=== PATIENT | female | born 1990 | race Hispanic/Latino ===

== ENCOUNTER 2017-06-02 15:15 | Outpatient (CLI) | payer OTHER ==
--- NOTE | 2017-06-02 17:59 | MRI ---
BRAIN MRI WITHOUT CONTRAST 06/02/17 HISTORY: Occipital headache for two weeks, blurred vision in the right eye. TECHNIQUE: Multiplanar and multisequence MR imaging of the brain is provided without contrast. FINDINGS: There is a cavum septum pellucidum incidentally noted. There is no evidence for acute infarction. Axi al gradient echo imaging demonstrates no evidence for intracranial hemorrhage. No midline shift, mass effect or ventricular enlargement. Regional bone marrow signal intensity appears within normal limits. There is a round structure of central T2 hyperintensity and peripheral T2 hypointensity along the cou rse of the transverse sinus on the left suggesting an arachnoid granulation. Arterial flow voids at a xial level of skull base appear grossly unremarkable on the T2 weighted imaging. Imaged paranasal sin uses/mastoid air cells appear grossly unremarkable. IMPRESSION: Unremarkable noncontrast enhanced brain MRI. POS: WILI
== END 2017-06-02 15:16 | disposition home or self-care (01) ==
LOC: MRI 15:15
PROVIDERS: ATTEND Family Medicine
DX: R51 Headache (principal); H53.8 Other visual disturbances
CPT/HCPCS: 70551

== ENCOUNTER 2018-01-18 09:05 | Outpatient (CLI) | payer OTHER | END 2018-01-18 09:06 | disposition home or self-care (01) | LOC: CTENTCT 09:05 | PROVIDERS: ATTEND Otolaryngology Plastic Surgery within the Head & Neck | DX: J32.9 Chronic sinusitis, unspecified (principal) | CPT/HCPCS: 70486 ==

== ENCOUNTER 2018-01-19 12:51 | Outpatient (CLI) | payer OTHER ==
[2018-01-19 13:53] LABS: BHCG - Serum Negative (NEGATIVE); Pregs Control Background? CLEAR/WHITE (CLR/WHITE); Pregs Control Bar Appear? YES (CONTROL BAR)
== END 2018-01-19 12:52 | disposition home or self-care (01) ==
LOC: LABBT 12:51
PROVIDERS: ATTEND Specialist
DX: Z01.812 Encounter for preprocedural laboratory examination (principal); J34.3 Hypertrophy of nasal turbinates; J32.4 Chronic pansinusitis
CPT/HCPCS: 84703; 85014

== ENCOUNTER 2018-01-21 08:47 | Day surgery (SDC) | payer OTHER ==
[2018-01-19 13:10] VITALS: BMI 29.5
[2018-01-21] MEDS ORDERED: Oxymetazoline HCl 0.05% ( 15 ML ) ONE ×2 (09:37→11:39)
[2018-01-21] MEDS ORDERED: Lidocaine 1% w/Epinephrine 1:100K 30 ML VIAL ONE (11:39)
[2018-01-21] MEDS ORDERED: Midazolam HCl 2 mg/2 ml Vial ONE ×2 (11:43→12:41)
[2018-01-21] MEDS ORDERED: Fentanyl 100 MCG/2 ML VIAL ONE ×3 (11:43→14:11)
[2018-01-21] MEDS ORDERED: Lidocaine 4% Topical Sol 50 ML BOT ONE (11:43)
[2018-01-21] MEDS ORDERED: Lidocaine 1% PF 5 ML VIAL ONE (11:55)
[2018-01-21] MEDS ORDERED: PROPOFOL 200 MG/20 ML VIAL ONE (11:55)
[2018-01-21] MEDS ORDERED: Glycopyrrolate 0.2 MG/ML 5 ML SYRINGE ONE (11:55)
[2018-01-21] MEDS ORDERED: Ondansetron HCl/PF 4 MG/2 ML Vial ONE (11:55)
[2018-01-21] MEDS ORDERED: Dexamethasone 20 MG/5 ML VIAL ONE (11:55)
--- NOTE | 2018-01-21 14:37 | OP ---
PREOPERATIVE DIAGNOSES: Chronic sinusitis, chronic headache, hypertrophic inferior turbinates. POSTOPERATIVE DIAGNOSES: Chronic sinusitis, chronic headache, hypertrophic inferior turbinates. PROCEDURES PERFORMED: 1. Bilateral nasal endoscopy with maxillary antrostomy. 2. Bilateral nasal endoscopy with maxillary antrostomy with removal of tissue. 3. Bilateral nasal endoscopy with total ethmoidectomy. 4. Bilateral nasal endoscopy with frontal sinusotomy. 5. Bilateral nasal endoscopy with submucosal resection of inferior turbinates. 6. Bilateral nasal endoscopy with sphenoidotomy. PROCEDURE IN DETAIL: After consent was obtained, the patient was identified, brought to the operatin g room, and placed on the operating room table in the supine position. Consent was obtained, notifyi ng the patient of the possibility of additional infections, bleeding, brain injury, and eye/orbital i njury. The patient was placed on the operating room table, and general endotracheal anesthesia and intravenous access was obtained. The patient was then positioned, prepped and draped for endoscopic sinus surgery. Nasal preparation included trimming nasal vestibular hairs and spraying in topical Af rin. We then placed Afrin topical solution on nasal pledgets and strategically located them intranas ally. The perinasal mucosa was injected with 1% lidocaine with 1:100,000 epinephrine in the submucop erichondrial plane of the septum, lateral nasal wall, and anterior to the uncinate. The patient was then prepped and draped in a sterile fashion and positioned for endoscopic sinus surgery. (Endoscopic Sinus Surgery) With the 0-degree endoscope, the patient underwent systematic nasal endoscopy. There were no suspici ous internasal masses or lesions identified. We then focused our attention to the osteomeatal comple x region under the middle turbinate. (Danny Bullosa) The danny bullosa was identified and entered with a sickle blade. The lateral aspect of the danny bullosa was meticulously resected while leaving the medial most aspect to form the new middle turbina te. Attention was made not to violate the mucosa. The straight biting punches and micro-debrider we re used to remove shrouds of mucosa and bony debris. (Maxillary Antrostomy) The uncinate was then identified and the extent of the uncinate was appreciated by out-fracturing the uncinate with the ball-tip probe. We then used the sickle blade to disarticulate the uncinate from the lateral nasal wall. This was then removed with straight biting and upbiting punches with the rem aining shrouds of mucosa and bony septum removed with the micro-debrider. The natural os of the maxi llary sinus was then identified and enlarged with the maxillary punches and back biting forceps. (Total Ethmoidectomy) The anterior face of the ethmoid bulla was entered and with the micro-debrider, dissection continued posteriorly to the ground lamella. The limits of dissection included the insertion of the middle tur binate, medial orbital wall, and base of skull. We similarly identified the frontal recess and remov ed shrouds of bone and debris in that region to obtain patency into the agger nasi region and frontal recess. We then entered the ground lamella and its anteroinferior aspect and proceeded posteriorly, opening the posterior ethmoid air-cell system. Again, the limits of dissection included the base of skull and medial orbital wall. (Sphenoidotomy) The anterior face of the sphenoid was identified and entered in its extreme anteroinferior aspect. A sphenoid punch was then used to enlarge the sphenoidotomy and no injury to the optic nerve or paid internship al carotid artery occurred. (Outfracture of the Inferior Turbinates) The inferior turbinates were visualized under endoscopic visualization and outfractured with the elev ator. The inferolateral edge of the inferior turbinate was then cauterized along its length with the suction cautery without difficulty. (Outfracture & Cautery of the Inferior Turbinates) The inferior turbinates were visualized with a 0-degree endoscope and outfractured with a [place] eleva tor. The inferior medial aspect was cauterized with the electrocautery. Hemostasis was obtained. A fter adequate airway was established, we turned our attention to the contralateral side and used a si milar procedure. Again, a [place] elevator was used to outfracture inferior turbinates under endoscopi c visualization. With a suction cautery, the free inferior medial aspect was cauterized under direct visualization along the length of the inferior turbinate. (Septoplasty) After local anesthesia was infiltrated into the submucoperichondrial plane, a standard Travis incisi on was made with a #15 blade down to the level of the septal cartilage. The caudal elevator was used to elevate the mucoperichondrium from the underlying cartilage. We then proceeded beyond the bony c artilaginous junction and elevated the bony periosteum as well. Great attention was paid to the spur to prevent rent formation in the septal flap. A transcartilaginous incision was then made, while pre serving an adequate dorsal and caudal cartilaginous strut for tip support. The deformed cartilage wa s removed and disarticulated from the bony cartilaginous junction and maxillary crest. This was plac ed in saline and would later be crushed and returned to the mucoperichondrial envelope. We then elev ated the contralateral periosteum from the bony cartilaginous region and removed the deformed portion s of the bone and bony spurs. The cartilage was then crushed and placed back into the mucoperichondr ial envelope and the mucosa was re-approximated with a quilting stitch composed of rapidly absorbent gut suture. The Travis incision was also closed with interrupted gut suture. At the completion of the case, [place] splints were placed and suture secured to the caudal septum. At this point, we then turned our attention to the contralateral side and proceeded with endoscopic s inus surgery. At the completion of the case, [place] keel splints were placed in the ethmoid cavities after the ethmoi dectomy. There were no complications. The patient tolerated the procedure well and was discharged t o the recovery room in stable condition prior to return to the preoperative Day Stay with [facility]. Prescriptions for pain medication and antibiotics were provided. The patient received intramuscular Depo-Medrol during the case. FINDINGS: Pansinusitis was encountered with inflammatory mucosal changes throughout.
[2018-01-21] MEDS ORDERED: Promethazine HCl 25 MG/ML VIAL ONE (14:44)
[2018-01-21] MEDS ORDERED: HYDROcodone/Acetaminophen 5/325 mg Tablet ONE (16:55)
== END 2018-01-21 17:00 | disposition home or self-care (01) ==
LOC: SDC 08:47
PROVIDERS: ATTEND Specialist
PROC: 09TV8ZZ Resection of Left Ethmoid Sinus, Via Natural or Artificial Opening Endoscopic (ICD-10-PCS; principal; 2018-01-21)
PROC: 099R8ZZ Drainage of Left Maxillary Sinus, Via Natural or Artificial Opening Endoscopic (ICD-10-PCS; principal; 2018-01-21)
PROC: 09BS8ZZ Excision of Right Frontal Sinus, Via Natural or Artificial Opening Endoscopic (ICD-10-PCS; principal; 2018-01-21)
PROC: 095L8ZZ Destruction of Nasal Turbinate, Via Natural or Artificial Opening Endoscopic (ICD-10-PCS; principal; 2018-01-21)
PROC: 09CW8ZZ Extirpation of Matter from Right Sphenoid Sinus, Via Natural or Artificial Opening Endoscopic (ICD-10-PCS; principal; 2018-01-21)
PROC: 09SM0ZZ Reposition Nasal Septum, Open Approach (ICD-10-PCS; principal; 2018-01-21)
PROC: 09CX8ZZ Extirpation of Matter from Left Sphenoid Sinus, Via Natural or Artificial Opening Endoscopic (ICD-10-PCS; principal; 2018-01-21)
PROC: 09TU8ZZ Resection of Right Ethmoid Sinus, Via Natural or Artificial Opening Endoscopic (ICD-10-PCS; principal; 2018-01-21)
PROC: 09TL8ZZ Resection of Nasal Turbinate, Via Natural or Artificial Opening Endoscopic (ICD-10-PCS; principal; 2018-01-21)
PROC: 099Q8ZZ Drainage of Right Maxillary Sinus, Via Natural or Artificial Opening Endoscopic (ICD-10-PCS; principal; 2018-01-21)
PROC: 09BT8ZZ Excision of Left Frontal Sinus, Via Natural or Artificial Opening Endoscopic (ICD-10-PCS; principal; 2018-01-21)
DX: J32.4 Chronic pansinusitis (principal); J34.3 Hypertrophy of nasal turbinates; E66.9 Obesity, unspecified; D64.9 Anemia, unspecified; J35.1 Hypertrophy of tonsils; J35.8 Other chronic diseases of tonsils and adenoids; Z79.2 Long term (current) use of antibiotics; Z68.29 Body mass index [BMI] 29.0-29.9, adult
CPT/HCPCS: 96374; J0131; J1100; J2001; J2250; J2405; J2550; J2704; J3010

== ENCOUNTER 2019-05-28 12:40 | Emergency (ER) | payer OTHER ==
[2019-05-28] MEDS ORDERED: Acetaminophen 500 MG TAB ONE (13:11)
[2019-05-28] MEDS ORDERED: Bacitracin 1 PK ONE (13:14)
== END 2019-05-28 13:35 | disposition home or self-care (01) ==
LOC: ERS 12:40
DX: S61.202A Unspecified open wound of right middle finger without damage to nail, initial encounter (principal); W45.8XXA Other foreign body or object entering through skin, initial encounter
CPT/HCPCS: 99283

== ENCOUNTER 2021-07-28 16:55 | Emergency (ER) | payer BC, OTHER ==
[~2021-07-28 16:55] MED LIST: Iopamidol-370 76% 500 ML 1 ML ONE
[2021-07-28 17:45] LABS: Bacteria/HPF None Seen HPF (None Seen); Bilirubin Negative (Negative); Blood, Urine 2+ (Negative); Clarity Clear (Clear); Glucose, Urine (Dipstick) Normal (Negative); Ketone, Urine Negative (Negative); Leukocyte Negative Leu/uL (Negative); Nitrite Negative (Negative); Protein, Urine (Dipstick) 10 mg/dL (Neg-Trace); RBC/HPF 0-3 HPF (0-3); Specific Gravity, Urine 1.028 (1.002-1.036); Squamous Epithelial 0-3 HPF (0-3); Urobilinogen Normal mg/dL (Less than 2); WBC/HPF 0-3 HPF (0-3); pH, Urine 5.5 (5.0-9.0)
[2021-07-28 17:46] LABS: Pregnancy Test - Urine (BHCG) Negative (Negative); Pregu Control Background? CLEAR/WHITE (CLR/WHITE); Pregu Control Bar Appear? YES (CONTROL BAR); Specific Gravity 1.028 (1.002-1.036)
[2021-07-28 17:52] LABS: #Eosinphils 0.1 thou/uL (0.0-0.7); #Lymphocytes 0.6 thou/uL (1.20-3.40); #Monocytes 1.1 thou/uL (0.11-0.59); #Neutrophils 7.4 thou/uL (1.40-6.50); %Basophils 0.2 % (0.0-1.0); %Eosinophils 1.3 % (0.0-10.0); %Lymphocytes 6.4 % (21.0-51.0); %Monocytes 11.8 % (0.0-10.0); %Neutrophils 80.3 % (42.0-75.0); Hemoglobin 13.6 g/dL (12.0-16.0); Mean Corpuscular HGB CONC 35.1 g/dL (32.0-36.0); Mean Corpuscular Hemoglobin 29.6 pg (27.0-31.0); Mean Corpuscular Volume 84.4 fL (78.0-98.0); Mean Platelet Volume 6.9 fL (7.4-10.4); Platelet Count 333 thou/uL (130-400); RBC Distribution Width 11.8 % (11.5-14.5); Red Blood Cell (RBC) Count 4.59 mill/uL (4.20-5.40); White Blood Cell (WBC) Count 9.2 thou/uL (4.8-10.8)
[2021-07-28 18:02] LABS: PTT 28.1 sec (22.9-36.1); Prothrombin Time 13.1 sec (12.0-14.7)
[2021-07-28] MEDS ORDERED: Piperacillin/Tazobactam 3.375 GM VIAL ONE (18:11)
[2021-07-28] MEDS ORDERED: Morphine 4 MG/ML VIAL ONE (18:11)
[2021-07-28] MEDS ORDERED: Ketorolac Tromethamine 30 MG/ML VIAL ONE (18:11)
[2021-07-28 18:16] LABS: ALT (SGPT) 11 U/L (8-55); AST (SGOT) 14 U/L (5-34); Albumin 4.2 g/dL (3.5-5.0); Alkaline Phosphatase 72 U/L (40-110); Anion Gap 13 mmol/L (10-20); BUN (Urea Nitrogen) 8 mg/dL (7.0-18.7); Bilirubin, Total 0.2 mg/dL (0.2-1.2); Calc. Creatinine Clearance 0 mL/min (70-130); Calcium 9.4 mg/dL (7.8-10.44); Carbon Dioxide 25 mmol/L (22-29); Chloride 102 mmol/L (98-107); Globulin 3.4 g/dL (2.4-3.5); Glucose 93 mg/dL (70-105); Potassium 3.5 mmol/L (3.5-5.1); Protein, Total 7.6 g/dL (6.0-8.3); Sodium 136 mmol/L (136-145)
[2021-07-28 18:45] LABS: BHCG - Serum Negative (NEGATIVE); Pregs Control Background? CLEAR/WHITE (CLR/WHITE); Pregs Control Bar Appear? YES (CONTROL BAR)
[2021-07-28] MEDS ORDERED: Acetaminophen 500 MG TAB ONE (21:00)
[2021-07-28 21:45] LABS: SARS-CoV-2 NAA Rapid Test DETECTED (NotDetected)
== END 2021-07-28 22:40 | disposition home or self-care (01) ==
LOC: ERS 16:55
DX: U07.1 COVID-19 (principal); R53.81 Other malaise
CPT/HCPCS: 71045; 74177; 80053; 81003; 81015; 81025; 83605; 84443; 84703; 85025; 85610; 85730; 87040; 87086; 93005; 94760; 96365; 96375; J1885; J2270; J2543; Q9967; U0002

== ENCOUNTER 2021-09-20 08:25 | Outpatient (CLI) | payer BC | END 2021-09-20 08:26 | disposition home or self-care (01) | LOC: DTY/OP 08:25 | PROVIDERS: ATTEND Nurse Practitioner Family | DX: E66.9 Obesity, unspecified (principal); Z68.34 Body mass index [BMI] 34.0-34.9, adult | CPT/HCPCS: 97802 ==

== ENCOUNTER 2021-11-29 08:18 | Outpatient (CLI) | payer BC | END 2021-11-29 08:19 | disposition home or self-care (01) | LOC: BICRAD 08:18 | PROVIDERS: ATTEND Specialist | DX: M79.671 Pain in right foot (principal) ==

== ENCOUNTER 2022-07-03 14:41 | Outpatient (CLI) | payer BC | END 2022-07-03 14:42 | disposition home or self-care (01) | LOC: ULT 14:41 | PROVIDERS: ATTEND Student in an Organized Health Care Education/Training Program | DX: R10.2 Pelvic and perineal pain (principal) | CPT/HCPCS: 76856 ==

== ENCOUNTER 2023-06-02 08:37 | Emergency (ER) | payer BC ==
[2023-06-02] MEDS ORDERED: Ketorolac Tromethamine 30 MG/ML VIAL ONE (09:22)
[2023-06-02 09:40] LABS: #Eosinphils 0.2 thou/uL (0.0-0.7); #Monocytes 0.5 thou/uL (0.11-0.59); #Neutrophils 6.1 thou/uL (1.40-6.50); %Basophils 0.4 % (0.0-1.0); %Eosinophils 1.8 % (0.0-10.0); %Lymphocytes 24.5 % (21.0-51.0); %Monocytes 5.9 % (0.0-10.0); Hematocrit 39.5 % (36.0-47.0); Hemoglobin 13.3 g/dL (12.0-16.0); Mean Corpuscular HGB CONC 33.7 g/dL (32.0-36.0); Mean Corpuscular Hemoglobin 28.3 pg (27.0-31.0); Mean Platelet Volume 9.1 fL (7.4-10.4); Platelet Count 387 10x3/uL (130-400); RBC Distribution Width 12.6 % (11.5-14.5); White Blood Cell (WBC) Count 9.1 10x3/uL (4.8-10.8)
[2023-06-02 09:48] LABS: Bacteria/HPF None Seen HPF (None Seen); Bilirubin Negative (Negative); Blood, Urine Negative (Negative); CAUTI Indications for Culture Dysuria,urgency,freq; Clarity Clear (Clear); Glucose, Urine (Dipstick) Normal (Negative); Ketone, Urine Negative (Negative); Leukocyte 75 Leu/uL (Negative); Nitrite Negative (Negative); Protein, Urine (Dipstick) Negative (Neg-Trace); RBC/HPF 0-3 HPF (0-3); Specific Gravity, Urine 1.026 (1.002-1.036); Urobilinogen Normal mg/dL (Less than 2); WBC/HPF 0-3 HPF (0-3)
[2023-06-02 09:50] LABS: Urine Culture Reflex No No
[2023-06-02 09:53] LABS: Pregnancy Test - Urine (BHCG) Negative (Negative); Pregu Control Background? CLEAR/WHITE (CLR/WHITE); Pregu Control Bar Appear? YES (CONTROL BAR); Specific Gravity 1.026 (1.002-1.036)
[2023-06-02 10:05] LABS: ALT (SGPT) 13 U/L (8-55); AST (SGOT) 14 U/L (5-34); Albumin 4.3 g/dL (3.5-5.0); Alkaline Phosphatase 66 U/L (40-110); Anion Gap 10 mmol/L (10-20); BUN (Urea Nitrogen) 10 mg/dL (7.0-18.7); Bilirubin, Total 0.4 mg/dL (0.2-1.2); Calc. Creatinine Clearance 0 mL/min (70-130); Calcium 8.7 mg/dL (7.8-10.44); Carbon Dioxide 24 mmol/L (22-29); Chloride 106 mmol/L (98-107); Estimated GFR 104; Globulin 2.4 g/dL (2.4-3.5); Glucose 90 mg/dL (70-105); Lipase 10 U/L (8-78); Potassium 3.9 mmol/L (3.5-5.1); Protein, Total 6.7 g/dL (6.0-8.3); Sodium 136 mmol/L (136-145)
[2023-06-02] MEDS ORDERED: Fluconazole 100 MG TAB ONE ×2 (10:21→10:27)
== END 2023-06-02 11:05 | disposition home or self-care (01) ==
LOC: ERS 08:37
DX: N39.0 Urinary tract infection, site not specified (principal); B37.31 Acute candidiasis of vulva and vagina
CPT/HCPCS: 36415; 80053; 81001; 81025; 83690; 85025; 96372; J1885

== ENCOUNTER 2024-09-09 08:19 | Emergency (ER) | payer BC ==
[2024-09-09] MEDS ORDERED: Ketorolac Tromethamine 30 MG (1 mL) VIAL ONE (08:45)
[2024-09-09] MEDS ORDERED: Ondansetron PF 4 MG/2 ML Vial ONE (08:45)
[2024-09-09 08:54] LABS: #Basophils 0.07 10x3/uL (0.0-0.2); %Basophils 0.9 % (0.0-1.0); %Lymphocytes 30.8 % (21.0-51.0); %Monocytes 6.4 % (0.0-10.0); %Neutrophils 57.4 % (42.0-75.0); Hematocrit 39.9 % (36.0-47.0); Hemoglobin 13.4 g/dL (12.0-16.0); Mean Corpuscular HGB CONC 33.6 g/dL (32.0-36.0); Mean Corpuscular Hemoglobin 27.9 pg (27.0-31.0); Mean Platelet Volume 9.2 fL (7.4-10.4); Platelet Count 374 10x3/uL (130-400); RBC Distribution Width 12.6 % (11.5-14.5); Red Blood Cell (RBC) Count 4.81 mill/uL (4.20-5.40)
[2024-09-09 09:07] LABS: BHCG - Serum Negative (NEGATIVE); Pregs Control Background? CLEAR/WHITE (CLR/WHITE); Pregs Control Bar Appear? YES (CONTROL BAR)
[2024-09-09 09:09] LABS: CAUTI Indications for Culture Dysuria,urgency,freq; RBC/HPF 0-3 HPF (0-3); Squamous Epithelial None Seen HPF (0-3); WBC/HPF 0-3 HPF (0-3)
[2024-09-09 09:10] LABS: ALT (SGPT) 15 U/L (Less than 34); AST (SGOT) 19 U/L (11-34); Alkaline Phosphatase 73 U/L (40-110); Anion Gap 13 mmol/L (10-20); BUN (Urea Nitrogen) 9 mg/dL (7.0-18.7); Bilirubin, Total 0.3 mg/dL (0.3-1.2); Calc. Creatinine Clearance 0 mL/min (70-130); Calcium 9.1 mg/dL (7.8-10.44); Carbon Dioxide 23 mmol/L (22-29); Chloride 107 mmol/L (98-107); Estimated GFR 103; Globulin 3.3 g/dL (2.4-3.5); Glucose 93 mg/dL (70-105); Lipase 12 U/L (8-78); Potassium 3.6 mmol/L (3.5-5.1); Protein, Total 7.3 g/dL (6.0-8.3); Sodium 139 mmol/L (136-145)
[2024-09-09 09:11] LABS: Bilirubin Negative (Negative); Blood, Urine Trace (Negative); Glucose, Urine (Dipstick) Negative (Negative); Ketone, Urine Negative (Negative); Leukocyte Negative (Negative); Nitrite Negative (Negative); Protein, Urine (Dipstick) Negative (Neg-Trace); Urobilinogen 0.2 mg/dL (Less than 2)
[2024-09-09 09:13] LABS: Clarity Clear (Clear); Specific Gravity, Urine 1.029 (1.002-1.036)
[2024-09-09 09:24] LABS: Bacteria/HPF None Seen HPF (None Seen)
[2024-09-09 09:25] LABS: Urine Culture Reflex No No
[2024-09-09] MEDS ORDERED: Iopamidol-370 76% 500 ML MDV (1 ML CHARGE) ONE (10:56)
== END 2024-09-09 10:56 | disposition home or self-care (01) ==
LOC: ERS 08:19
DX: R10.12 Left upper quadrant pain (principal); R10.32 Left lower quadrant pain; R11.2 Nausea with vomiting, unspecified; Z79.899 Other long term (current) drug therapy
CPT/HCPCS: 74177; 80053; 81001; 83690; 84703; 85025; 96361; 96374; 96375; J1885; J2405